=== PATIENT | male | born 1990 | race Caucasian/White ===

== ENCOUNTER 2022-06-13 14:31 | Emergency (ER) | payer OTHER ==
[~2022-06-13] VITALS: Ht 167.6 cm; Wt 105.7 kg
[2022-06-13 14:54] VITALS: BP_SYST 131
[2022-06-13 15:57] VITALS: BP_SYST 131
[2022-06-13] MEDS ORDERED: ACETAMINOPHEN 500 MG TABLET PO ONE (17:00)
== END 2022-06-13 15:57 ==
LOC: SED 14:31
DX: S60.221A Contusion of right hand, initial encounter (principal); S20.212A Contusion of left front wall of thorax, initial encounter; S09.90XA Unspecified injury of head, initial encounter; Z88.6 Allergy status to analgesic agent; Z79.899 Other long term (current) drug therapy; V89.2XXA Person injured in unspecified motor-vehicle accident, traffic, initial encounter; Y93.89 Activity, other specified; Y92.89 Other specified places as the place of occurrence of the external cause; Y99.8 Other external cause status
CPT/HCPCS: 70450-TC; 71100; 72125-TC; 76376; 99284